=== PATIENT | female | born 1975 | race Caucasian/White ===

== ENCOUNTER 2017-12-02 16:52 | Emergency (ER) | payer BC ==
[2017-12-02 17:31] VITALS: BP 128/69
--- NOTE | 2017-12-02 17:34 | UC ---
Respiratory Complaint HPI - HPI Summary HPI Summary: 42 year old female presents with complains of cough and nasal congestion. - History of Current Complaint Chief Complaint: UCRespiratory Stated Complaint: CONGESTION/COUGH Time Seen by Provider: 12/02/17 17:34 Hx Obtained From: Patient Hx Last Menstrual Period: 11/25/17 Onset/Duration: Sudden Onset Severity Initially: Moderate Severity Currently: Moderate Pain Scale Used: 0-10 Numeric - 4 - Allergies/Home Medications Allergies/Adverse Reactions: Allergies Allergy/AdvReac Type Severity Reaction Status Date / Time No Known Allergies Allergy Verified 12/02/17 17:31 PMH/Surg Hx/FS Hx/Imm Hx Previously Healthy: Yes - Surgical History Surgical History: Yes Surgery Procedure, Year, and Place: basal cell skin ca excision 2007. 3 LAPAROSCOPIC SURGERIES FOR ENDOMETRIOSIS [id number]. LUMBAR HEMILAMINECTOMY 2007 - DR CASTRO, [facility] – [place] - Family History Known Family History: Positive: None - Social History Alcohol Use: None Substance Use Type: None Smoking Status (MU): Never Smoked Tobacco Review of Systems Constitutional: Negative Skin: Negative Eyes: Negative ENT: Nasal Discharge, Sinus Congestion, Sinus Pain/Tenderness Respiratory: Cough Cardiovascular: Negative Gastrointestinal: Negative Genitourinary: Negative Motor: Negative Neurovascular: Negative Musculoskeletal: Negative Neurological: Negative Psychological: Negative All Other Systems Reviewed And Are Negative: Yes Physical Exam Triage Information Reviewed: Yes Vital Signs: Initial Vital Signs Temp 37.2 C 12/02/17 17:25 Pulse 108 12/02/17 17:25 Resp 18 12/02/17 17:25 BP 128/69 12/02/17 17:25 Pulse Ox 100 12/02/17 17:25 Vital Signs Reviewed: Yes Eye Exam: Normal ENT: Positive: Pharyngeal erythema, Nasal congestion, Nasal drainage, Sinus tenderness Dental Exam: Normal Neck exam: Normal Neck: Positive: 1 Respiratory: Positive: Wheezing Cardiovascular Exam: Normal Abdominal Exam: Normal Musculoskeletal Exam: Normal Neurological Exam: Normal Psychological Exam: Normal Skin Exam: Normal UC Diagnostic Evaluation - Laboratory O2 Sat by Pulse Oximetry: 100 Respiratory Course/Dx - Differential Dx/Diagnosis Provider Diagnoses: allergic rhinitis. cough Discharge - Discharge Plan Condition: Stable Disposition: HOME Prescriptions: DOXYcycline CAP(*) [DOXYcycline 100MG CAP(*)] 100 mg PO BID #14 cap LoraTADine TAB(NF) [Claritin 10 MG TAB(NF)] 10 mg PO DAILY #30 tab Patient Education Materials: Allergic Rhinitis (ED) Referrals: Johan Wallace MD [Primary Care Provider] -
[2017-12-02] MEDS ORDERED: DOXYcycline CAP(*) 100 MG PO ONE (17:49)
[2017-12-02] MEDS ORDERED: LoraTADine TAB(NF) 10 MG TAB (AUTOSUB to CETIRIZINE) PO ONE (17:49)
== END 2017-12-02 17:56 | disposition home or self-care (01) ==
LOC: UCCORT 16:52
DX: J30.9 Allergic rhinitis, unspecified (principal); R05 Cough; Z85.828 Personal history of other malignant neoplasm of skin
CPT/HCPCS: 99212; A9270-GY; G0463